=== PATIENT | male | born 1990 | race Caucasian/White ===

== ENCOUNTER 2020-12-15 04:55 | Emergency (ER) | payer MEDICAID ==
[~2020-12-15] VITALS: Ht 167.6 cm; Wt 81.6 kg
--- NOTE | 2020-12-15 05:00 | NUR ---
PATIENT C/O BILATERAL KNEE PAIN, FALLING FROM TREE THIS AFTERNOON AND LANDED ON KNEES. PATINET IS A/O X 4, RR EVEN AND UNLABORED, NO SIGNS OF SOB NOTED. PATIENT CONNECTED TO [facility].
[2020-12-15] MEDS ORDERED: KETOROLAC TROMETHAMINE INJ 30 MG/ML VIAL ONE (05:51)
[2020-12-15] MEDS: KETOROLAC TROMETHAMINE INJ 60 MG/2 ML VIAL IM ONE (05:55)
[2020-12-15] MEDS ORDERED: IBUP-1957 PO (05:56)
[2020-12-15 07:12] VITALS: BP 126/69
--- NOTE | 2020-12-15 07:12 | NUR ---
Patient discharged to home in stable condition. RX and Written and verbal after care instructions given. Patient verbalizes understanding of instruction.
== END 2020-12-15 07:13 | disposition home or self-care (01) ==
LOC: ER 05:08
DX: M25.561 Pain in right knee (principal); M25.562 Pain in left knee; R22.42 Localized swelling, mass and lump, left lower limb; W17.89XA Other fall from one level to another, initial encounter; Y93.39 Activity, other involving climbing, rappelling and jumping off; Y92.89 Other specified places as the place of occurrence of the external cause; Y99.8 Other external cause status
CPT/HCPCS: 73564 ×2; 96372; 99283; J1885

== ENCOUNTER 2021-10-03 21:54 | Emergency (ER) | payer MEDICAID ==
[~2021-10-03] VITALS: Ht 167.6 cm; Wt 95.3 kg
[~2021-10-03 21:54] MED LIST: IBUP-1957 PO
--- NOTE | 2021-10-03 22:05 | NUR ---
BIBS C/O COUGH WITH SOB, FEVER, COLD SWEATS AND BODY ACHES X6DAYS. PLACED IN BED.VITALS CHECKED.
--- NOTE | 2021-10-03 22:20 | NUR ---
CXR DONE AT BEDSIDE
--- NOTE | 2021-10-03 22:32 | NUR ---
COVID ANTIGEN SWAB AND INFLUENZA SWAB SAMPLES SENT TO LAB
--- NOTE | 2021-10-03 23:28 | NUR ---
Patient discharged to home in stable condition. Written and verbal after care instructions given. Patient verbalizes understanding of instruction.
[2021-10-03 23:31] VITALS: BP 134/81
== END 2021-10-03 23:32 | disposition home or self-care (01) ==
LOC: ER 22:00
DX: J06.9 Acute upper respiratory infection, unspecified (principal); Z20.822 Contact with and (suspected) exposure to COVID-19; R03.0 Elevated blood-pressure reading, without diagnosis of hypertension
CPT/HCPCS: 71045; 87426; 87804; 99284; C9803